=== PATIENT | female | born 1975 | race Caucasian/White ===

== ENCOUNTER 2016-09-15 07:30 | Emergency (ER) | payer OTHER ==
[~2016-09-15] VITALS: Ht 157.5 cm; Wt 81.7 kg
[~2016-09-15 07:30] MED LIST: ACETAMINOPHEN-1 EAC1 PO; AMBIEN 10 MG TA10 MG PO; ATENOLOL 50MG T50 M1 PO; BELSOMRA20 MG PO; BRINTELLIX20 MG PO; CELEXA 20 MG TA20 M1; CLONIDINE HCL0.2 M2 PO; DEPAKOTE500 MG PO; FLEXERIL PO; HYDROCHLOROTHIA25 M1 PO; LEXAPRO 10 MG T10 M2 PO; LOPRESSOR25 PO; LOXAPINE5 MG; LOXAPINE50 MG PO; MOBIC7.5 M1 PO; OXCARBAZEPINE150 MG PO; PERCOCET 5-3251 EACH PO; PERIDEX 0.12%473 M1 SSP; PROPRANOLOL 1010 MG PO; ROBAXIN 750 MG750 M1 PO; TOPAMAX 25 MG T25 M1 PO; TOPAMAX25 M1 PO; TOPROL XL100 MG PO; TRILEPTAL 300300 MG PO; VALIUM5 MG PO; VISTARIL 25 MG25 M1 PO; ZPAK PO
[2016-09-15] MEDS ORDERED: METOPROLOL SUC200 MG PO (07:35)
[2016-09-15] MEDS ORDERED: NAPROSYN500 MG PO (08:24)
[2016-09-15] MEDS ORDERED: ROXICODONE5 M2 PO (08:24)
== END 2016-09-15 08:31 | disposition home or self-care (01) ==
LOC: ER 07:30
DX: S93.402A Sprain of unspecified ligament of left ankle, initial encounter (principal); F41.9 Anxiety disorder, unspecified; F20.9 Schizophrenia, unspecified; I10 Essential (primary) hypertension; F10.99 Alcohol use, unspecified with unspecified alcohol-induced disorder; Z88.5 Allergy status to narcotic agent; Z88.0 Allergy status to penicillin; Z88.8 Allergy status to other drugs, medicaments and biological substances; Z87.891 Personal history of nicotine dependence; W01.0XXA Fall on same level from slipping, tripping and stumbling without subsequent striking against object, initial encounter; Y93.89 Activity, other specified; Y92.002 Bathroom of unspecified non-institutional (private) residence as the place of occurrence of the external cause; Y99.8 Other external cause status

== ENCOUNTER 2019-08-26 09:18 | Emergency (ER) | payer OTHER ==
[~2019-08-26] VITALS: Ht 157.5 cm; Wt 70.3 kg
[~2019-08-26 09:18] MED LIST changes: +METOPROLOL SUC200 MG PO; +NAPROSYN500 MG PO; +ROXICODONE5 M2 PO
[2019-08-26] MEDS ORDERED: HYDROXYZINE HCL50 MG PO (09:34)
[2019-08-26] MEDS ORDERED: TYLENOL WITH CO1 TA1 PO ×2 (09:37→10:25)
[2019-08-26] MEDS ORDERED: CLEOCIN HCL150 M1 PO (09:39)
[2019-08-26] MEDS ORDERED: CLINDAMYCIN HC300 MG PO (10:25)
[2019-08-26 10:47] VITALS: BP 123/63
== END 2019-08-26 10:47 | disposition home or self-care (01) ==
LOC: ER 09:18
DX: K04.7 Periapical abscess without sinus (principal); I10 Essential (primary) hypertension; F31.9 Bipolar disorder, unspecified; F41.9 Anxiety disorder, unspecified; Z98.890 Other specified postprocedural states; Z98.51 Tubal ligation status; Z79.899 Other long term (current) drug therapy; Z79.2 Long term (current) use of antibiotics; Z88.6 Allergy status to analgesic agent; Z88.8 Allergy status to other drugs, medicaments and biological substances; Z88.0 Allergy status to penicillin; Z87.891 Personal history of nicotine dependence

== ENCOUNTER 2019-12-01 13:12 | Emergency (ER) | payer OTHER ==
[~2019-12-01] VITALS: Ht 157.5 cm; Wt 78.0 kg
[~2019-12-01 13:12] MED LIST changes: +CLEOCIN HCL150 M1 PO; +CLINDAMYCIN HC300 MG PO; +HYDROXYZINE HCL50 MG PO; +TYLENOL WITH CO1 TA1 PO
[2019-12-01] MEDS ORDERED: CYMBALTA60 MG PO (13:37)
[2019-12-01] MEDS ORDERED: VALIUM2 MG PO (13:38)
[2019-12-01 14:22] LABS: ABSOLUTE NEUTROPHILS 8.1 thou/uL (1.4-8.2); BASOPHILS 0.6 % (0.0-2.0); EOSINOPHILS 0.7 % (0.0-3.0); HEMATOCRIT 45.3 % (37.0-47.0); HEMOGLOBIN 14.9 gm/dL (12.0-15.0); LYMPHOCYTES 20.7 % (24.0-44.0); MCH 28.8 pg (26.0-34.0); MCHC 32.9 g/dL (28.0-37.0); MCV 87.4 fL (80.0-100.0); MONOCYTES 5.4 % (1.0-8.0); PLATELET COUNT 436 thou/uL (150-400); POLYS 72.6 % (36.0-66.0); RBC 5.18 mil/uL (4.20-5.00); RDW 14.9 % (10.5-14.5); WBC 11.1 thou/uL (4.0-11.0)
[2019-12-01 14:34] LABS: ANION GAP 10 mmol/L (7-16); BUN 7 mg/dL (7-18); CALCIUM 9.1 mg/dL (8.5-10.1); CHLORIDE 103 mmol/L (98-107); CO2 28 mmol/L (21-32); CREATININE 0.9 mg/dL (0.6-1.0); GLUCOSE 127 mg/dL (74-106); POTASSIUM 4.1 mmol/L (3.5-5.1); SODIUM 141 mmol/L (136-145)
[2019-12-01 14:41] LABS: APTT 21.9 Seconds (24.5-32.8); D-DIMER 0.27 ug/mLFEU (0.19-0.50)
[2019-12-01 14:44] LABS: ALBUMIN 3.6 g/dL (3.4-5.0); SGOT 37 U/L (15-37); SGPT 46 U/L (30-65); TOTAL BILIRUBIN 0.8 mg/dL (0.2-1.0); TOTAL PROTEIN 7.3 g/dL (6.4-8.2); TROPONIN-I <0.06 ng/mL (<0.06)
[2019-12-01] MEDS ORDERED: DIFLUCAN150 M1 PO (15:05)
[2019-12-01] MEDS ORDERED: AZITHROMYCIN 2250 MG PO (15:05)
[2019-12-01] MEDS ORDERED: IBU600 MG PO (15:05)
[2019-12-01] MEDS ORDERED: PROAIR HFA8.5 GM INH (15:05)
[2019-12-01 15:39] VITALS: BP 162/91
--- NOTE | 2019-12-03 08:06 | EKG ---
[facility] [place] [address] [place] [address] ELECTROCARDIOGRAM REPORT Name: DENICE SCHMIDT Room #: DEP [facility]#: [id number] Admission: 12/01/19 Attend Phys: Discharge: 12/01/19 Date of : 77 Report #: [id number] THIS REPORT FOR: cc: PATRIA - Leandra family physician/PCP PATRIA - No family physician/PCP Ulysses Aparicio MD [facility] THIS REPORT FOR: //name// [facility] ED Test Date: 2019-12-01 Test Time: 13:53:54 Pat Name: DENICE SCHMIDT Department: Room: Gender: F [employer]otive Service Assistant: : 1975 Requested By: Mavis Whittington Order Number: [id number] MD: Ulysses Aparicio Measurements Intervals [place] Rate: 89 P: 29 UT: 126 QRS: 19 QRSD: 75 T: 67 QT: 363 QTc: 442 Interpretive Statements Sinus rhythm Probable left atrial enlargement Borderline T wave abnormalities Compared to ECG 03/23/2016 12:34:50 T-wave abnormality now present Electronically Signed On 12-03-2019 8:06:13 CDT by Ulysses Aparicio [email or web address] <ELECTRONICALLY SIGNED> By: Ulysses Aparicio MD, [facility] 12/03/19 [id number] Ulysses Aparicio MD, [facility] /EPI
== END 2019-12-01 15:39 | disposition home or self-care (01) ==
LOC: ER 13:12
PROVIDERS: Physician Assistant
DX: R09.1 Pleurisy (principal); I10 Essential (primary) hypertension; Z79.899 Other long term (current) drug therapy; Z87.891 Personal history of nicotine dependence; Z88.0 Allergy status to penicillin; Z88.8 Allergy status to other drugs, medicaments and biological substances